=== PATIENT | male | born 1990 | race Caucasian/White ===

== ENCOUNTER 2023-01-18 16:48 | Inpatient (IN) | payer MEDICAID, SELFPAY ==
[2023-01-18 16:49] VITALS: BP 145/96; PULSE 106; RESP 16; TEMP 36.8; O2SAT 98; BMI 20.5
--- NOTE | 2023-01-18 16:56 | EX.ED.DYSGE1 ---
HPI History of Present Illness Chief Complaint: Substance Abuse Narrative Narrative: Patient is a 32-year-old male who is presenting to the ER today with chief complaint of wanting to be admitted to the hospital for fentanyl detox. Patient was sent here by his PCP who is in [place], Dr. Octavia Santos. Patient lives in [facility], patient's PCP is in [place]. Patient was sent to [place] by his PCP for fentanyl detox. She typically prescribes him Suboxone along with gabapentin and Klonopin. She has a PCP. Patient stated that he was in a detox program for 3 weeks until his insurance has run out, [facility]. After 3 weeks, patient has been using fentanyl for the past 4 months. Patient states that he no longer does IV, he is only smoking it. Patient is averaging 1 g of fentanyl a day. Patient does not do any alcohol use, patient will do occasional vape pen of marijuana. Patient also did coke 3 days ago. Patient's drug of choice is fentanyl. 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 Patient has been on Suboxone in the past. Patient is hoping to go through detox so that he can get back on Suboxone again. Patient is not suicidal. Not homicidal. Patient last used a small amount of fentanyl this morning at 9 AM. Patient states that he needs to get clean from fentanyl so that he can be prescribed his medications again from his PCP Dr. Octavia Santos. Patient has no history of hepatitis C or HIV. Patient stopped IV drug use 3 months ago. Patient does have a history of anxiety. Patient was also seen in [place] 1 week ago because he has been having lung pain patient was prescribed clindamycin and prednisone with no chest x-ray. Patient was upset they did not do a chest x-ray, hoping that we could do a chest x-ray today. Patient does use Neurontin 600 mg 3 times a day, patient uses Klonopin 1 mg daily. Patient also uses albuterol inhaler as needed as well. [facility] Medical History (Updated 01/18/23 @ 17:[address] Silvio Castaneda DO) Anxiety Nerve pain Substance abuse Home Medications buprenorphine 8 mg-naloxone 2 mg sublingual tablet 1 tab sublingual BID 01/18/23 [History Last Taken Unknown] clonazepam 0.5 mg tablet 0.5 mg PO QHS 01/18/23 [History Last Taken Unknown] gabapentin 600 mg tablet 600 mg PO 4X/DAY 01/18/23 [History Last Taken Unknown] Allergy/AdvReac Type Severity Reaction Status Date / Time Penicillins Allergy PT UNSURE Verified 01/18/23 16:51 OF REACTION Surgical History no surgical history Social History Smoking Status: Current every day smoker tobacco type: cigarettes ROS ROS ED ROS Narrative REVIEW OF SYSTEMS: Unless otherwise stated in this report the patient's positive and negative responses for review of systems for constitutional, eyes, ENT, cardiovascular, respiratory, gastrointestinal, neurological, , musculoskeletal, and integument systems and related systems to the presenting problem are either stated in the history of present illness or were not pertinent or were negative for the symptoms and/or complaints related to the presenting medical problem. EXAM Physical Exam Narrative Exam Narrative: Vital signs reviewed and patient is not hypoxic. General: The patient appears well and in no apparent distress. Patient is resting comfortably on cart. Not toxic, lethargic, or listless. Skin: Warm, dry, no pallor noted. There is no rash noted. Patient has multiple healing scars/previous wounds from shooting up IV drugs in his arms, no acute new abscess, no acute new infection/no new signs of abscesses, cellulitis, or lymphangitis to bilateral upper and lower extremities. Head: Normocephalic, atraumatic Eye: Normal conjunctiva, no drainage, EOMI. PERRL. Ears, Nose, Mouth, and Throat: oral mucosa is moist. Nares patent. Mouth without vesicles. Very poor dentition, no acute new signs of gingivitis, ANUG, or periapical abscess. Multiple areas of dental caries. Cardiovascular: Regular Rate and Rhythm, no murmurs, gallops, or rubs Respiratory: Patient is in no distress, no accessory muscle use, lungs are clear to auscultation, no wheezing, rales or rhonchi Back: non-tender, no CVA tenderness bilaterally to percussion. NO CTLS midline or paraspinal tenderness to palpation. GI: Soft, no tenderness to palpation, no masses appreciated. No rebound, guarding, or rigidity noted. Musculoskeletal: The patient has full range of motion of all extremities and joints with no difficulty. Patient has no motor, no sensory deficits. Neurological: A&O x4, normal speech, no focal neurological deficits. Psychiatric: Cooperative Const Vital Signs: 01/18/23 16:49 Temperature 98.3 F Temperature Source Temporal Pulse Rate 106 H Respiratory Rate 16 Blood Pressure 145/96 H Blood Pressure Mean 112 Pulse Ox 98 Oxygen Delivery Method Room Air [facility] MDM Narrative Medical decision making narrative: Patient is admittedly very anxious, agitated. Patient have a hard time keeping still. Patient is drinking liquids no difficulty, patient keeps spitting clear phlegm out as well for unknown reason. Patient says that he has not had his medications today of gabapentin and Klonopin. Patient last use a small amount of fentanyl this morning, smoking it. Patient will be given gabapentin 600 milligram tablet, Klonopin 1 mg tablet that he normally takes daily. Patient had a chest x-ray done, patient is getting substance abuse medical clearance so that he may be admitted for detox. He is not suicidal homicidal. At the end of the besides being very anxious, demanding and agitated, patient was thankful for help. Patient says that he is here because his PCP told him to come to this hospital to get admitted for detox. Lab Data Attestation: I reviewed the patient's lab results. Labs: Laboratory Results - last 24 hr 01/18/23 01/18/23 01/18/23 17:00 17:00 17:50 Sodium 136 Potassium 4.7 Chloride 104 Carbon Dioxide 26.0 Anion Gap 6 BUN 17 Creatinine 0.80 Estim Creat Clear Calc 115.88 Est GFR (MDRD) Af Amer 146 Est GFR (MDRD) Non-Af 121 BUN/Creatinine Ratio 21.4 H Glucose 81 Calcium 9.7 Total Bilirubin 0.20 AST 22 ALT 29 Alkaline Phosphatase 82 Total Protein 8.4 H Albumin 4.1 Globulin 4.3 H Albumin/Globulin Ratio 1.0 Urine Color Yellow Urine Clarity Clear Urine pH 6.0 Ur Specific [place] 1.020 Urine Protein 15 H Urine Glucose (UA) Normal Urine Ketones 5 H Urine Occult Blood Negative Urine Nitrite Negative Urine Bilirubin Negative Urine Urobilinogen Normal Ur Leukocyte Esterase 25 H Urine RBC 0 SEEN Urine WBC 0 SEEN Ur Squamous Epith Cells 0 SEEN Urine Bacteria 0 SEEN Urine Mucus 0 SEEN Urine Opiates Screen NEGATIVE Urine Methadone Screen NEGATIVE Ur Barbiturates Screen NEGATIVE Ur Phencyclidine Scrn NEGATIVE Ur Amphetamines Screen NEGATIVE MDMA (Ecstasy) Screen POSITIVE H U Benzodiazepines Scrn NEGATIVE Urine Cocaine Screen POSITIVE H U Cannabinoids Screen POSITIVE H Ur Drug Screen Comment Radiography Chest X-Ray - ED: 2 View and Read by ED Physician (Chest x-ray shows no acute cardiopulmonary disease, no infiltrate, no effusion) EKG Initial EKG: Attestation: I personally reviewed and interpreted this EKG as follows: Comments: EKG interpretation. Normal sinus rhythm at 77 beats a minute. Normal axis deviation. No acute ST elevation, no acute ectopy. QTc of 411 Treatment and Re-Evaluation :: 1840 Patient was given gabapentin and Klonopin. Patient has been drinking water, has been very thankful for help. Patient's had 3 attempts by nursing staff/lab trying to do alcohol level on him, patient is refusing any more lab draws. Patient is alert and orient x3, patient does have a functional decision, making capacity to refuse additional lab draws at this time. Patient does not smell like alcohol, patient does not admit to using any alcohol. Patient will be admitted to Dr. Duncan for detox for fentanyl Discharge Plan Dx/Rx/DC Orders Clinical Impression: Anxiety, Opiate dependence Disposition Disposition: Acute Care Hospital [facility]
[2023-01-18 17:12] LABS: Bacteria 0 SEEN /hpf (None Seen); Mucous, Urine 0 SEEN /hpf (<or=2+); Red Blood Cells-Urine 0 SEEN /hpf (0-5); Squamous Epithelial Cells - UA 0 SEEN /hpf (0-5); White Blood Cells 0 SEEN /hpf (0-5)
[2023-01-18 17:16] LABS: Color, Urine Yellow (Yellow); Glucose, Dipstick Normal (Normal); Ketone-Dipstick 5 mg/dl (Negative); Leukocyte Esterase-Dipstick 25 /ul (Negative); Nitrite-Dipstick Negative (Negative); Occult Blood-Urine Negative /ul (Negative); Protein-Dipstick 15 mg/dl (Negative); Urine Bilirubin Dipstick Negative (Negative); Urine Clarity Clear (Clear); Urine Urobilinogen Normal (Normal)
[2023-01-18 17:29] LABS: Amphetamine Urine VISTA NEGATIVE (<1000 ng/mL); Barbiturate Urine VISTA NEGATIVE (< 200 ng/mL); Benzodiazepine Urine VISTA NEGATIVE (< 200 ng/mL); Cocaine Urine VISTA POSITIVE (< 300 ng/mL); Ecstacy Urine VISTA POSITIVE (< 500 ng/mL); Methadone Urine VISTA NEGATIVE (< 300 ng/mL); PCP Urine VISTA NEGATIVE (< 25 ng/mL); THC Urine VISTA POSITIVE (< 50 ng/mL); Vista UDS pH Range 5
--- NOTE | 2023-01-18 17:36 | RAD_ITS ---
STUDY: X-RAY CHEST REASON FOR EXAM: Male, 32 years old. Cough. TECHNIQUE: PA and lateral views of the chest. COMPARISON: None. FINDINGS: Lungs are mildly hyperexpanded. There is no focal mass or infiltrate. No pneumothorax. There is no demonstrated pleural abnormality. Normal size heart. Normal mediastinum and maurizio. Normal visualized pulmonary arteries. Normal visualized aortic arch and descending thoracic aorta. Normal visualized thoracic spine. Normal visualized ribs, clavicles, and shoulders. There is no demonstrated abnormality of the visualized soft tissue structures of the upper abdomen. RAD/Chest PA and Lateral IMPRESSION: Mild hyperexpansion lungs without acute abnormality. Electronically Signed: Keo Lucio DO at 17:48 EDT ,
[2023-01-18] MEDS: clonazePAM 1 MG Tablet PO (17:59)
[2023-01-18] MEDS: Gabapentin 600 MG Tablet PO ×2 (17:59→22:06)
[2023-01-18 18:02] LABS: Absolute Lymphocyte Count 3.64 X10^3/uL (0.83-4.51); Absolute Neutrophil Count 4.3 X10^3/uL (2.0-7.7); Basophil# 0.09 X10^3/uL; Basophil% 0.9 % (0-1); Eosinophil# 1.19 X10^3/uL; Eosinophils% 12.1 % (0-5); Hematocrit 54.9 % (40-54); Lymphocyte # 3.64 X10^3/ul (0.83-4.51); Mean Corpuscular Hgb 28.9 pg (27.0-32.0); Mean Corpuscular Volume 87.6 fL (80-94); Monocyte# 0.63 X10^3/uL; Monocyte% 6.4 % (0-10); NRBC Flagged by Analyzer 0 % (0-5); Neutrophil # 4.25 X10^3/uL (2.7-7.7); Neutrophil % 43.2 % (47-70); POSITIVE COUNT YES; RBC Distribution Width CV 13.5 % (11.6-14.6); RBC Distribution Width SD 43.6 fl (35.1-43.9); Red Blood Count 6.27 M/mm3 (4.6-6.2); White Blood Count 9.8 K/mm3 (4.4-11.0)
--- NOTE | 2023-01-18 18:15 | ED.RN ---
this rn attempted blood draw x1, ER medic attempted & was successful with CBC & BMP but not serum ETOH. technology program manager attempted with no success. Pt requesting to not be stuck again. Dr. Castaneda notified at this time.
[2023-01-18 18:21] LABS: AST(SGOT) 22 U/L (15-37); Alanine Aminotransfer ALT/SGPT 29 U/L (16-61); Albumin, Serum 4.1 g/dL (3.2-5.0); Alkaline Phosphatase 82 U/L (45-117); Anion Gap 6 (5-15); BUN 17 mg/dL (7-18); BUN/Creat Ratio 21.4 RATIO (10-20); Calcium,Total 9.7 mg/dL (8.5-10.1); Chloride 104 mmol/L (98-107); EST Glomerular Filtration Rate 121 mL/min (>60); Est Glom Filt Rate - Afr Amer 146 mL/min (>60); Estimated Creatinine Clearance 115.88 ml/min; Globulin 4.3 g/dL (2.2-4.2); Glucose 81 mg/dL (74-106); Potassium 4.7 mmol/L (3.5-5.1); Protein, Total 8.4 g/dL (6.4-8.2); Sodium Level 136 mmol/L (136-145)
[2023-01-18 18:46] LABS: Differential Indicated SCAN CRITERIA MET; Hemoglobin 18.1 g/dL (13.0-16.5)
[2023-01-18 18:47] LABS: Differential Comment SCANNED; Platelet Estimate ADEQUATE (ADEQ)
--- NOTE | 2023-01-18 18:57 | HP.PCM.HOS_ITS ---
HPI - General General Date of Service: 01/18/23 Chief Complaint: opiate withdrawal HPI Narrative SOPHY CAMPBELL, is a 32 M who presents seeking treatment for opiate withdrawal. Patient snorts fentanyl. His last use was this morning. Patient has tried quitting before and was in a residential program but his insurance and was taken out of the program. He began using again fentanyl. He also uses cocaine intermittently as well as marijuana. Patient states that he has been slowly tapering his fentanyl down just to function. He is been working with his primary care doctor and had been on Suboxone in the past and would like to go back on the Suboxone but his doctor wanted him to go to this program. Patient lives and works in [place]. [facility] Medical History (Updated 01/18/23 @ 19:[address] Steve Duncan DO) Anxiety Asthma Nerve pain Substance abuse Home Medications buprenorphine 8 mg-naloxone 2 mg sublingual tablet 1 tab sublingual BID 01/18/23 [History Last Taken Unknown] clonazepam 0.5 mg tablet 0.5 mg PO QHS 01/18/23 [History Last Taken Unknown] gabapentin 600 mg tablet 600 mg PO 4X/DAY 01/18/23 [History Last Taken Unknown] Allergy/AdvReac Type Severity Reaction Status Date / Time Penicillins Allergy PT UNSURE Verified 01/18/23 16:51 OF REACTION Family History (Updated 01/18/23 @ 19:[address] Steve Duncan DO) Mother CVA (cerebral vascular accident) Surgical History no surgical history Social History (Updated 01/18/23 @ 19:[address] Steve Duncan DO) Smoking Status: Current every day smoker tobacco type: cigarettes alcohol intake: never substance use type: marijuana, crack/cocaine and other details: Fentanyl ROS ROS Narrative Feeling anxious. Does have chronic numbness in his legs which the gabapentin helps. All review of systems were negative except as mentioned above in the history of present illness and the other review of systems. Vital Signs Vital Signs Vital Signs: 01/18/23 16:49 Temperature 36.8 C Temperature Source Temporal Pulse Rate 106 H Respiratory Rate 16 Blood Pressure 145/96 H Blood Pressure Mean 112 Pulse Ox 98 Oxygen Delivery Method Room Air Weight Weight: 61.235 kg Body Mass Index (BMI) 20.5 Physical Exam Const alert and no apparent distress Constitutional Narrative: Anxious but cooperative. HEENT normocephalic and head/scalp atraumatic Resp normal respiratory effort, no retractions, no use of accessory muscles and clear to auscultation bilaterally Cardio regular rate, regular rhythm, S1 normal heart sound and S2 normal heart sound GI normal to inspection, nondistended, normoactive bowel sounds, soft to palpation, non-tender and non-distended; Negative for hepatosplenomegaly Extremity normal to inspection and no clubbing, cyanosis or edema Results Lab / Micro Data Result Diagrams: 01/18/23 17:50 01/18/23 17:50 Labs: Laboratory Results - last 24 hr 01/18/23 17:00: Urine Opiates Screen NEGATIVE, Urine Methadone Screen NEGATIVE, Ur Barbiturates Screen NEGATIVE, Ur Phencyclidine Scrn NEGATIVE, Ur Amphetamines Screen NEGATIVE, MDMA (Ecstasy) Screen POSITIVE H, U Benzodiazepines Scrn NEGATIVE, Urine Cocaine Screen POSITIVE H, U Cannabinoids Screen POSITIVE H, Ur Drug Screen Comment 01/18/23 17:00: Urine Color Yellow, Urine Clarity Clear, Urine pH 6.0, Ur Specific [place] 1.020, Urine Protein 15 H, Urine Glucose (UA) Normal, Urine Ketones 5 H, Urine Occult Blood Negative, Urine Nitrite Negative, Urine Bilirubin Negative, Urine Urobilinogen Normal, Ur Leukocyte Esterase 25 H, Urine RBC 0 SEEN, Urine WBC 0 SEEN, Ur Squamous Epith Cells 0 SEEN, Urine Bacteria 0 SEEN, Urine Mucus 0 SEEN 01/18/23 17:50: WBC 9.8, RBC 6.27 H, Hgb 18.1 H*, Hct 54.9 H, MCV 87.6, MCH 28.9, MCHC 33.0, RDW Std Deviation 43.6, RDW Coeff of [place] 13.5, Plt Count TNP, Immature Gran % (Auto) 0.400, Neut % (Auto) 43.2 L, Lymph % (Auto) 37.0, [place] % (Auto) 6.4, Eos % (Auto) 12.1 H, Baso % (Auto) 0.9, Absolute Neuts (auto) 4.3, Absolute Lymphs (auto) 3.64, Nucleated RBC % 0, Differential Comment SCANNED, Platelet Estimate ADEQUATE 01/18/23 17:50: Sodium 136, Potassium 4.7, Chloride 104, Carbon Dioxide 26.0, Anion Gap 6, BUN 17, Creatinine 0.80, Estim Creat Clear Calc 115.88, Est GFR (MDRD) Af Amer 146, Est GFR (MDRD) Non-Af 121, BUN/Creatinine Ratio 21.4 H, Glucose 81, Calcium 9.7, Total Bilirubin 0.20, AST 22, ALT 29, Alkaline Phosphatase 82, Total Protein 8.4 H, Albumin 4.1, Globulin 4.3 H, A lbumin/Globulin Ratio 1.0 Assessment & Plan Assessment/Plan (1) Opiate withdrawal: PLAN: Patient uses fentanyl. His last use was on the morning of the . Patient's goal is to get through this program and to follow-up with his primary care doctor so that he can get it placed back on Suboxone. He has a girlfriend who works as an addiction counselor. He is going to be following up with programs up in [place] to continue with counseling for his anxiety and drug abuse. Plan: We will use buprenorphine taper and as well as other medications to help with other withdrawal related symptoms. Patient informed that his belongings will be locked up and she will be here for 3 days through Monday. Additionally it he is informed addiction medicine will see him to see if there are any other resources that could be provided. PLAN: Plan Other chronic conditions * Neuropathy: Patient states that he takes the gabapentin to help with his numbness and nerve pain in his lower extremities. He states that he has this problem but for unclear etiologies * Asthma: Currently stable. Was recently diagnosed with bronchitis and completed a course of prednisone and clindamycin * Anxiety: Patient takes clonazepam. Not an ideal choice and a drug addict but patient states that he has tried venlafaxine but it was not effective for him. VTE prophylaxis: Low risk and not currently indicated. Charges/Coding Visit Charges Inpatient E&M: 56159 Init Hosp L2
[2023-01-18 19:01] VITALS: BP 132/84; PULSE 78; RESP 14; TEMP 36.4; O2SAT 98
[2023-01-18 19:17] VITALS: BP 141/103; PULSE 79; RESP 20; TEMP 36.4; O2SAT 97
[2023-01-18 19:31] VITALS: BMI 20.5
[2023-01-18 21:22] VITALS: PULSE 87; RESP 16
[2023-01-18] MEDS: Albuterol 2.5 MG/3 ML VIAL.NEB. INHALATION (21:22)
[2023-01-19 02:32] VITALS: BP 129/76; PULSE 84; RESP 18; TEMP 36.5; O2SAT 96
[2023-01-19 03:30] VITALS: PULSE 85; RESP 18
[2023-01-19] MEDS: Albuterol 2.5 MG/3 ML VIAL.NEB. INHALATION (03:30)
--- NOTE | 2023-01-19 07:41 | PCM.PN.HOSP ---
Reason for Visit Reason for Visit: Diagnoses Opioid use, unspecified with withdrawal (01/18/23) Subjective Subjective Follow-up for acute opioid withdrawal syndrome Objective Data Objective Data Vital Signs: Vital Signs Temp Pulse Resp BP Pulse Ox O2 Del Method 97.7 F L 85 18 129/76 H 96 Room Air 01/19/23 02:32 01/19/23 03:30 01/19/23 03:30 01/19/23 02:32 01/19/23 02:32 01/19/23 02:32 Oxygen Delivery Method Room Air Weight: 135 lb Body Mass Index (BMI) 20.5 Intake & Output: Intake and Output for Last 24 Hours 01/17/23 01/18/23 01/19/23 23:59 23:59 23:59 Intake Total 400 / 400 Balance 400 / 400 Lab / Micro Data Result Diagrams: 01/18/23 17:50 01/18/23 17:50 Labs: Laboratory Results - last 24 hr 01/18/23 17:00: Urine Opiates Screen NEGATIVE, Urine Methadone Screen NEGATIVE, Ur Barbiturates Screen NEGATIVE, Ur Phencyclidine Scrn NEGATIVE, Ur Amphetamines Screen NEGATIVE, MDMA (Ecstasy) Screen POSITIVE H, U Benzodiazepines Scrn NEGATIVE, Urine Cocaine Screen POSITIVE H, U Cannabinoids Screen POSITIVE H, Ur Drug Screen Comment 01/18/23 17:00: Urine Color Yellow, Urine Clarity Clear, Urine pH 6.0, Ur Specific [place] 1.020, Urine Protein 15 H, Urine Glucose (UA) Normal, Urine Ketones 5 H, Urine Occult Blood Negative, Urine Nitrite Negative, Urine Bilirubin Negative, Urine Urobilinogen Normal, Ur Leukocyte Esterase 25 H, Urine RBC 0 SEEN, Urine WBC 0 SEEN, Ur Squamous Epith Cells 0 SEEN, Urine Bacteria 0 SEEN, Urine Mucus 0 SEEN 01/18/23 17:50: WBC 9.8, RBC 6.27 H, Hgb 18.1 H*, Hct 54.9 H, MCV 87.6, MCH 28.9, MCHC 33.0, RDW Std Deviation 43.6, RDW Coeff of [place] 13.5, Plt Count TNP, Immature Gran % (Auto) 0.400, Neut % (Auto) 43.2 L, Lymph % (Auto) 37.0, [place] % (Auto) 6.4, Eos % (Auto) 12.1 H, Baso % (Auto) 0.9, Absolute Neuts (auto) 4.3, Absolute Lymphs (auto) 3.64, Nucleated RBC % 0, Differential Comment SCANNED, Diff Path Review December, Platelet Estimate ADEQUATE 01/18/23 17:50: Sodium 136, Potassium 4.7, Chloride 104, Carbon Dioxide 26.0, Anion Gap 6, BUN 17, Creatinine 0.80, Estim Creat Clear Calc 115.88, Est GFR (MDRD) Af Amer 146, Est GFR (MDRD) Non-Af 121, BUN/Creatinine Ratio 21.4 H, Glucose 81, Calcium 9.7, Total Bilirubin 0.20, AST 22, ALT 29, Alkaline Phosphatase 82, Total Protein 8.4 H, Albumin 4.1, Globulin 4.3 H, Albumin/Globulin Ratio 1.0 Physical Exam Narrative Patient is feeling restless, anxiety, hyperactive, constant desire to move and fidgety. Denies hallucination delusion or illusion. He states he can hear his heartbeat. No seizure. Physical exam General: Alert, Oriented x3, Cooperative HEENT: Atraumatic, PERRLA, EOMI, Normocephalic Oral: No Gingival or Mucosal Lesions/ Ulcerations Neck: Supple, No JVD, Negative Carotid Bruits Lungs: Air entry diminished in bilateral lung bases. No crepitation/rhonchi Cardiovascular: Heart rate in 90s, Normal S1, Normal S2, No murmurs Abdomen: Bowel Sounds Present, Soft, Non Tender, Non-Distended : No renal angle tenderness. No suprapubic tenderness. Extremities: No edema, Capillary Refill Less than 3 Seconds Skin: No rashes, No breakdown Musculoskeletal: No Tenderness to Palpation of Joints or Extremities Neurological: Cranial nerves II-XII grossly intact, DTR 2+/4 and Symmetrical, Neuro grossly intact Psych/Mental Status: Flat affect, hyperactive, hyperalert Assessment & Plan Assessment/Plan (1) Opiate withdrawal: PLAN: Patient is admitted with acute opioid withdrawal syndrome. 1. Acute opioid withdrawal syndrome with history of chronic opioid use, dependence and tolerance: Patient last dose was in the morning of January 18. The patient is started on buprenorphine along with other adjunctive medications as needed for medical stabilization as per order set of opioid withdrawal syndrome.Patient also on trazodone, hydroxyzine, gabapentin as needed ordered. regional facilities manager consult. He states his withdrawal symptoms gets worse with buprenorphine 4 mg so requested to try with a smaller dose 2 mg. As per nursing staff, and withdrawal symptoms got worse with 2 mg therefore Ativan 0.5 mg oral ordered. Discussed with the social sciences instructor, Victorino Patient's goal is to get through this program and to follow-up with his primary care doctor so that he can get it placed back on Suboxone. He has a girlfriend who works as an addiction counselor. He is going to be following up with [facility] in [place] to continue with counseling for his anxiety and drug abuse. PLAN: Plan Other chronic conditions Neuropathy: Patient states that he takes the gabapentin to help with his numbness and nerve pain in his lower extremities. Asthma: Currently stable. Was recently diagnosed with bronchitis and completed a course of prednisone and clindamycin Anxiety: Patient takes clonazepam. Follow with PCP VTE prophylaxis: Low risk and not currently indicated. Early ambulation encouraged. Charges/Coding Visit Charges Inpatient E&M: 26173 Subs Hosp L2
--- NOTE | 2023-01-19 08:48 | NURSING ---
pt asleep at 8 and 9 o clock rounds
[2023-01-19] MEDS: Ensure Plus High Protein 120 ML LIQUID PO (09:12)
[2023-01-19] MEDS: Gabapentin 600 MG Tablet PO ×3 (09:12→21:39)
--- NOTE | 2023-01-19 09:18 | NURSING ---
pt scoring 20 on cows scale but refusing to start buprenorphine stating I know my body-but pt wants 1 mg of clonopin, and 600 mg of neurontin neurontin 600 mg given as ordered pt aware he can change his mind to start taper at anytime
[2023-01-19 09:36] VITALS: BP 139/61; PULSE 91; RESP 18; TEMP 36.7; O2SAT 94
[2023-01-19] MEDS: hydrOXYzine PAM 25 MG Capsule 50 MG PO ×2 (10:40→17:02)
[2023-01-19] MEDS: cloNIDine HCl 0.1 MG Tablet PO (10:40)
[2023-01-19] MEDS: Buprenorphine HCl 2 MG TAB.SUBL SL ×2 (10:45→17:03)
[2023-01-19] MEDS: Ondansetron 8 MG Tablet PO (10:45)
--- NOTE | 2023-01-19 11:22 | ADDICTION ---
This board writer met with PT to conduct ASAM, MSE, AUDIT, DUDIT assessments and to plan for d/c. PT A+Ox4 and participated actively. All assessments completed and placed in PT's chart. PT plans to f/u with [facility] for follow-up MAT services. PT did not indicate a need for transportation post d/c from [facility].
[2023-01-19] MEDS: Methocarbamol 750 MG Tablet 1500 MG PO (13:11)
[2023-01-19] MEDS: LORazepam 0.5 MG Tablet PO (13:46)
[2023-01-19 15:00] VITALS: BP 140/78; PULSE 99; RESP 18; TEMP 36.8; O2SAT 94
[2023-01-19 17:26] VITALS: BP 155/94; PULSE 88; RESP 18; TEMP 37.1; O2SAT 99
[2023-01-19 20:30] VITALS: BP 132/80; PULSE 88; RESP 16; TEMP 36.8; O2SAT 99
[2023-01-19] MEDS: clonazePAM 0.5 MG Tablet PO (21:38)
[2023-01-20 01:21] VITALS: BP 125/89; PULSE 88; RESP 16; TEMP 36.5; O2SAT 97
[2023-01-20] MEDS: Buprenorphine HCl 2 MG TAB.SUBL SL ×2 (01:22→09:42)
[2023-01-20 06:47] VITALS: BP 146/92; PULSE 88; RESP 18; TEMP 36.8; O2SAT 100
[2023-01-20] MEDS: Dicyclomine 10 MG Capsule 20 MG PO (06:54)
[2023-01-20] MEDS: hydrOXYzine PAM 25 MG Capsule 50 MG PO (06:54)
[2023-01-20] MEDS: Methocarbamol 750 MG Tablet 1500 MG PO (06:54)
[2023-01-20 08:44] LABS: Pathologist Review Reviewed
--- NOTE | 2023-01-20 09:14 | PN.HOSP_ITS ---
Subjective Subjective Restless and anxious, feels a little bit better than yesterday with a Cina score of 5 today Objective Data Objective Data Vital Signs: Vital Signs Temp Pulse Resp BP Pulse Ox O2 Del Method 98.2 F 88 18 146/92 H 100 Room Air 01/20/23 06:47 01/20/23 06:47 01/20/23 06:47 01/20/23 06:47 01/20/23 06:47 01/20/23 06:47 Oxygen Delivery Method Room Air Weight: 135 lb Body Mass Index (BMI) 20.5 Intake & Output: Intake and Output for Last 24 Hours 01/19/23 01/20/23 01/21/23 03:59 03:59 03:59 Intake Total 400 / 400 1370 / 1370 120 / 120 Balance 400 / 400 1370 / 1370 120 / 120 Lab / Micro Data Result Diagrams: 01/18/23 17:50 01/18/23 17:50 Labs: Laboratory Results - last 24 hr 01/18/23 17:50: Diff Path Review Reviewed Physical Exam Narrative General: Alert, Oriented x3, Cooperative, restless HEENT: Atraumatic, PERRLA, EOMI, Normocephalic Oral: Moist Mucosa Neck: Supple, No JVD Lungs: Clear to auscultation, Normal air movement, No rhonchi, No wheeze, No rales Cardiovascular: Regular rate, Regular Rhythm, Normal S1, Normal S2, No murmurs Abdomen: Soft, Non Tender, Non-Distended, No Hepato-splenomegaly Extremities: No edema, Capillary Refill Less than 3 Seconds Skin: No rashes, No breakdown Musculoskeletal: No Tenderness to Palpation of Joints or Extremities Neurological: Cranial nerves II-XII grossly intact, Motor Exam 5/5 strength throughout, Sensory exam intact to light touch and pain Psych/Mental Status: Anxious Assessment & Plan Assessment/Plan (1) Opiate withdrawal: PLAN: Patient is admitted with acute opioid withdrawal syndrome. 1. Acute opioid withdrawal syndrome with history of chronic opioid use, dependence and tolerance: Patient last dose was in the morning of January 18. The patient is started on buprenorphine along with other adjunctive medications as needed for medical stabilization as per order set of opioid withdrawal syndrome.Patient also on trazodone, hydroxyzine, gabapentin as needed ordered. quantitative manager consult. He states his withdrawal symptoms gets worse with buprenorphine 4 mg so requested to try with a smaller dose 2 mg. As per nursing staff, and withdrawal symptoms got worse with 2 mg therefore Ativan 0.5 mg oral ordered. Discussed with the perinatal social worker, Victorino Patient's goal is to get through this program and to follow-up with his primary care doctor so that he can get it placed back on Suboxone. He has a girlfriend who works as an addiction counselor. He is going to be following up with programs up in [place] to continue with counseling for his anxiety and drug abuse. PLAN: Plan Other chronic conditions * Neuropathy: Patient states that he takes the gabapentin to help with his numbness and nerve pain in his lower extremities. * Asthma: Currently stable. Was recently diagnosed with bronchitis and completed a course of prednisone and clindamycin * Anxiety: Patient takes clonazepam. Follow with PCP * Erythrocytosis: This could be due to dehydration, will recheck in the morning if still elevated may benefit from some IV fluids VTE prophylaxis: Low risk and not currently indicated. Early ambulation encouraged. Charges/Coding Visit Charges Inpatient E&M: 87395 Subs Hosp L2
[2023-01-20] MEDS: Gabapentin 600 MG Tablet PO (09:43)
[2023-01-20] MEDS: Ondansetron 8 MG Tablet PO (09:43)
[2023-01-20] MEDS: Ibuprofen 600 MG Tablet PO (09:43)
[2023-01-20 09:50] VITALS: BP 124/86; PULSE 96; RESP 18; TEMP 37.4; O2SAT 99
== END 2023-01-20 11:28 | disposition left against medical advice (07) | DRG 770 ==
LOC: ED 17:38 → MS3 19:00
PROVIDERS: Emergency Provider Emergency Medicine; Visit Provider Family Medicine
DX: F11.23 Opioid dependence with withdrawal (principal); F17.210 Nicotine dependence, cigarettes, uncomplicated; J45.909 Unspecified asthma, uncomplicated; G62.9 Polyneuropathy, unspecified; F41.9 Anxiety disorder, unspecified
CPT/HCPCS: 71046; 80053; 80307; 81001; 85025; 93005; 94640; 97802; 99283